=== PATIENT | male | born 2000 | race Caucasian/White ===

== ENCOUNTER 2019-10-03 10:08 | Emergency (ER) | payer BC, MEDICAID ==
[2019-10-03 10:32] VITALS: BP 138/73; PULSE 52
--- NOTE | 2019-10-03 11:01 | EDM.PDOC ---
ED HPI GENERAL MEDICAL PROBLEM - General Chief Complaint: Upper Extremity Injury/Pain Stated Complaint: RT SHOULDER INJURY Time Seen by Provider: 10/03/19 10:45 Source of Information: Reports: Patient, RN Notes Reviewed - History of Present Illness INITIAL COMMENTS - FREE TEXT/NARRATIVE: missed a steer steer wrestling last night at [employer] [employer]. Arm got pulled awkwardly up and to the side. Pain R ant. and superior shoulder with any type of motion. No other injury. Hx of prior R shoulder dislocation. Right Shoulder Pain Score (Numeric/FACES): 6 - Related Data Allergies Allergy/AdvReac Type Severity Reaction Status Date / Time No Known Allergies Allergy Verified 12/03/14 22:34 Home Meds: Home Meds Ibuprofen [Motrin] 600 mg PO Q6H PRN #30 tab 12/03/14 [Rx] methocarbamoL [Robaxin] 750 mg PO BID #20 tab 12/03/14 [Rx] Past Medical History - Past Health History Medical/Surgical History: Denies Medical/Surgical History Social & Family History - Tobacco Use Smoking Status *Q: Never Smoker Review of Systems - Review of Systems Review Of Systems: See Below Constitutional: Reports: No Symptoms Ears: Reports: No Symptoms Mouth/Throat: Reports: No Symptoms Respiratory: Denies: Shortness of Breath Cardiovascular: Denies: Chest Pain GI/Abdominal: Denies: Abdominal Pain, Nausea, Vomiting Musculoskeletal: Reports: Shoulder Pain Skin: Reports: No Symptoms Neurological: Denies: Numbness, Tingling, Weakness ED EXAM, GENERAL - Physical Exam Exam: See Below General Appearance: Alert, No Apparent Distress Head: Atraumatic Neck: Supple Respiratory/Chest: No Respiratory Distress, Lungs Clear, Normal Breath Sounds, Chest Non-Tender Cardiovascular: Regular Rate, Rhythm Extremities: Other (There is tenderness of the R AC joint and of the R shoulder superiorly and anteriorly, pain with forward motion and abduction, no swelling, bruising or visible deformity) Neurological: Alert, Oriented, No Motor/Sensory Deficits Skin Exam: Warm, Dry, Normal Color Course - Vital Signs Last Recorded V/S: Last Vital Signs Temp 97.9 F 10/03/19 10:29 Pulse 52 L 10/03/19 10:29 Resp 16 10/03/19 10:29 BP 138/73 10/03/19 10:29 Pulse Ox 98 10/03/19 10:29 Departure - Departure Time of Disposition: 10:58 Disposition: Home, Self-Care 01 Condition: Fair Clinical Impression: Sprain of shoulder, right Qualifiers: Encounter type: initial encounter Shoulder sprain type: unspecified sprain Qualified Code(s): S43.401A - Unspecified sprain of right shoulder joint, initial encounter Fall Qualifiers: Encounter type: initial encounter Qualified Code(s): W19.XXXA - Unspecified fall, initial encounter - Discharge Information Instructions: Shoulder Sprain Referrals: PCP,None [Primary Care Provider] - Forms: ED Department Discharge, ED Return to Work/School Form Additional Instructions: rest arm and shoulder, R arm sling. Alternate tylenol and ibuprofen as needed. See Dr Drummond or Tiffani Aguirre in about 4 to 5 days for recheck. No rodeo for 1 week or until symptoms have resolved. Sepsis Event Note (ED) - Evaluation Sepsis Screening Result: No Definite Risk
--- NOTE | 2019-10-04 12:30 | CR ---
Right shoulder: 3 views of the right shoulder were obtained. Comparison: No previous right shoulder study. No discrete fracture, dislocation or other bony abnormality is appreciated. Impression: 1. No abnormality is identified on 3 view right shoulder study. Diagnostic code #1 This report was dictated in MDT
== END 2019-10-03 11:16 | disposition home or self-care (01) ==
LOC: JD.ED 10:08
DX: S43.401A Unspecified sprain of right shoulder joint, initial encounter (principal); Z79.899 Other long term (current) drug therapy; W19.XXXA Unspecified fall, initial encounter; Y93.72 Activity, wrestling
CPT/HCPCS: 73030-26-RT; 73030-RT; 99282; 99283